=== PATIENT | male | born 1935 | race Caucasian/White ===

== ENCOUNTER 2016-11-08 10:30 | Emergency (ER) | payer MEDICARE | END 2016-11-08 11:52 | disposition home or self-care (01) | LOC: NAV ERS 10:30 | DX: H61.21 Impacted cerumen, right ear (principal); E78.5 Hyperlipidemia, unspecified; I10 Essential (primary) hypertension; I48.91 Unspecified atrial fibrillation; K21.9 Gastro-esophageal reflux disease without esophagitis; Z79.899 Other long term (current) drug therapy | CPT/HCPCS: 69210 ==

== ENCOUNTER 2016-12-13 10:35 | Outpatient (CLI) | payer MEDICARE ==
[2016-12-13 11:46] LABS: ALT (SGPT) 13 U/L (8-55); AST (SGOT) 32 U/L (5-34); Albumin 4.3 g/dL (3.4-4.8); Alkaline Phosphatase 77 U/L (40-150); Anion Gap 20 mmol/L (10-20); BUN (Urea Nitrogen) 32 mg/dL (8.4-25.7); Bilirubin, Total 1.5 mg/dL (0.2-1.2); Calc. Creatinine Clearance 0 mL/min (70-130); Calcium 9.6 mg/dL (7.8-10.44); Carbon Dioxide 24 mmol/L (23-31); Chloride 96 mmol/L (98-107); Estimated GFR-MDRD 30; Globulin 2.4 g/dL (2.4-3.5); Glucose 88 mg/dL (83-110); Potassium 4.3 mmol/L (3.5-5.1); Protein, Total 6.7 g/dL (5.8-8.1); Sodium 136 mmol/L (136-145)
[2016-12-13 13:29] LABS: #Basophils 0.1 thou/uL (0.0-0.2); #Eosinphils 0.1 thou/uL (0.0-0.7); #Lymphocytes 1.7 thou/uL (1.20-3.40); #Monocytes 1.2 thou/uL (0.11-0.59); #Neutrophils 5.3 thou/uL (1.40-6.50); %Basophils 1.6 % (0.0-1.0); %Eosinophils 1.5 % (0.0-10.0); %Lymphocytes 20.1 % (21.0-51.0); %Monocytes 14.3 % (0.0-10.0); %Neutrophils 62.4 % (42.0-75.0); Hemoglobin 12.6 g/dL (14.0-18.0); Mean Corpuscular HGB CONC 36.2 g/dL (32.0-36.0); Mean Corpuscular Hemoglobin 36.8 pg (27.0-31.0); Mean Platelet Volume 8.6 fL (7.4-10.4); Platelet Count 199 thou/uL (130-400); RBC Distribution Width 12.9 % (11.5-14.5); Red Blood Cell (RBC) Count 3.43 mill/uL (4.70-6.10); White Blood Cell (WBC) Count 8.5 thou/uL (4.8-10.8)
== END 2016-12-13 10:36 | disposition home or self-care (01) ==
LOC: NAV LAB 10:35
PROVIDERS: ATTEND Internal Medicine
DX: R58 Hemorrhage, not elsewhere classified (principal)
CPT/HCPCS: 36415; 80053; 85025; 85610

== ENCOUNTER 2017-04-12 05:44 | Emergency (ER) | payer MEDICARE ==
[2017-04-12] MEDS ORDERED: Lidocaine Viscous Sol 2% 15 ml UD Cup ONE (06:22)
[2017-04-12] MEDS ORDERED: Ondansetron HCl/PF 4 MG/2 ML Vial ONE (06:22)
[2017-04-12] MEDS ORDERED: Pantoprazole 40 MG VIAL ONE (06:22)
[2017-04-12] MEDS ORDERED: Mag-Al Plus 1200 MG/1200 MG/120 MG/30 ML UDCUP ONE (06:22)
[2017-04-12 06:31] LABS: ALT (SGPT) 60 U/L (8-55); AST (SGOT) 138 U/L (5-34); Alkaline Phosphatase 129 U/L (40-150); Anion Gap 20 mmol/L (10-20); BUN (Urea Nitrogen) 18 mg/dL (8.4-25.7); Bilirubin, Total 2.1 mg/dL (0.2-1.2); Calc. Creatinine Clearance 0 mL/min (70-130); Calcium 8.9 mg/dL (7.8-10.44); Carbon Dioxide 22 mmol/L (23-31); Chloride 104 mmol/L (98-107); Estimated GFR-MDRD 74; Globulin 2.6 g/dL (2.4-3.5); Glucose 117 mg/dL (83-110); Potassium 4.5 mmol/L (3.5-5.1); Protein, Total 6.6 g/dL (5.8-8.1); Sodium 141 mmol/L (136-145)
[2017-04-12 06:32] LABS: CKMB 5.7 ng/mL (0-6.6); Troponin I 0.091 ng/mL (< 0.028)
[2017-04-12 06:38] LABS: CK (CPK) 27 U/L (30-200); Hemoglobin 12.5 g/dL (14.0-18.0); Lipase 1117 U/L (8-78); Mean Corpuscular HGB CONC 34.1 g/dL (32.0-36.0); Mean Corpuscular Hemoglobin 34.6 pg (27.0-31.0); Mean Platelet Volume 11.1 fL (7.4-10.4); Platelet Count 169 thou/uL (130-400); RBC Distribution Width 12.6 % (11.5-14.5); Red Blood Cell (RBC) Count 3.62 mill/uL (4.70-6.10); White Blood Cell (WBC) Count 29.2 thou/uL (4.8-10.8)
[2017-04-12 06:39] LABS: Anisocytosis SLIGHT = 6-15 cells (100X) (0-5/hpf); Band 2 % (5-11); Lymphocytes 1 % (21-51); MDiff Complete? YES; Macrocytosis SLIGHT = 6-15 cells (100X) (0-5/hpf); Monocytes 9 % (0-10); Neutrophil 88 % (42-75); PLT Morphology Comment Appears Adequate
[2017-04-12] MEDS ORDERED: Fentanyl 100 MCG/2 ML VIAL ONE (07:12)
--- NOTE | 2017-04-12 07:32 | RAD ---
1 VIEW CHEST: Date: 04/12/17 HISTORY: Chest pain. Stomach pain. COMPARISON: 03/24/16. FINDINGS: Portable semiupright chest radiograph demonstrates a stable left-sided single lead transvenous pacema ker. Heart size is within normal limits for portable technique. Sternotomy wires identified. No conso lidation or mass. No pleural effusion or pneumothorax. Chronic degenerative change in both shoulders. Cervical fusion plate is noted. IMPRESSION: No acute cardiopulmonary process. POS: [facility]
[2017-04-12] MEDS ORDERED: Sodium Chloride 0.9% 1,000 ML ONE (07:38)
== END 2017-04-12 08:47 | disposition short-term general hospital (02) ==
LOC: NAV ERS 05:44
DX: K85.90 Acute pancreatitis without necrosis or infection, unspecified (principal); I25.10 Atherosclerotic heart disease of native coronary artery without angina pectoris; I48.91 Unspecified atrial fibrillation; K21.9 Gastro-esophageal reflux disease without esophagitis; Z86.14 Personal history of Methicillin resistant Staphylococcus aureus infection; E78.5 Hyperlipidemia, unspecified; I10 Essential (primary) hypertension; Z79.899 Other long term (current) drug therapy
CPT/HCPCS: 71010; 80053; 82553; 83690; 84484; 85025; 93005; 96361; 96374; 96375; C9113; J2405; J3010; J7050

== ENCOUNTER 2017-05-11 10:03 | Emergency (ER) | payer MEDICARE ==
[2017-05-11] MEDS ORDERED: Sodium Chloride 0.9% 1,000 ML ONE ×2 (10:21→11:45)
[2017-05-11 10:54] LABS: INR-International Normal Ratio 1.3; Prothrombin Time 16.9 SEC (12.0-14.7)
[2017-05-11 10:55] LABS: PTT 83.5 SEC (22.9-36.1)
[2017-05-11 11:03] LABS: Troponin I 0.078 ng/mL (< 0.028)
[2017-05-11 11:17] LABS: ALT (SGPT) 13 U/L (8-55); AST (SGOT) 37 U/L (5-34); Alkaline Phosphatase 83 U/L (40-150); Anion Gap 17 mmol/L (10-20); BUN (Urea Nitrogen) 19 mg/dL (8.4-25.7); CK (CPK) 79 U/L (30-200); Calc. Creatinine Clearance 0 mL/min (70-130); Calcium 9.2 mg/dL (7.8-10.44); Carbon Dioxide 22 mmol/L (23-31); Chloride 98 mmol/L (98-107); Estimated GFR-MDRD 61; Globulin 2.2 g/dL (2.4-3.5); Glucose 87 mg/dL (83-110); Magnesium 1.7 mg/dL (1.6-2.6); Protein, Total 6.2 g/dL (5.8-8.1); Sodium 133 mmol/L (136-145)
[2017-05-11 11:44] LABS: CKMB 12.2 ng/mL (0-6.6)
[2017-05-11 11:50] LABS: Hemoglobin 13.8 g/dL (14.0-18.0); Mean Corpuscular HGB CONC 35.4 g/dL (32.0-36.0); Mean Corpuscular Hemoglobin 34.7 pg (27.0-31.0); Mean Platelet Volume 12.8 fL (7.4-10.4); Platelet Count 165 thou/uL (130-400); RBC Distribution Width 13.6 % (11.5-14.5); Red Blood Cell (RBC) Count 3.97 mill/uL (4.70-6.10); White Blood Cell (WBC) Count 7.2 thou/uL (4.8-10.8)
--- NOTE | 2017-05-11 11:57 | RAD ---
CHEST ONE VIEW: History: Cough. Weakness. Comparison: 04-12-17 FINDINGS: Cardiac silhouette is magnified and enlarged. Pulmonary vasculature is upper limits of normal and acc entuated by shallow inspiration. Mediastinum is midline with post-operative changes, aortic calcifica tions, and a single lead cardiac pacer. No lobar consolidation or pleural fluid are apparent. IMPRESSION: 1. Cardiomegaly. 2. Atherosclerosis. POS: [facility]
--- NOTE | 2017-05-11 11:58 | CT ---
CT BRAIN WITHOUT CONTRAST: HISTORY: Generalized weakness. COMPARISON: CT brain from 2016. FINDINGS: Moderate atrophy. No acute hemorrhage or infarct. No midline shift or mass effect. Old lacunar inf arcts. There is a hypodensity of the right globus pallidus, which is similar. The calvarium is intact. The paranasal sinuses and mastoids appear clear. IMPRESSION: 1. No acute intracranial abnormality. 2. No significant change. POS: [facility]
[2017-05-11 12:11] LABS: Eosinophils 4 % (0-10); Lymphocytes 12 % (21-51); MDiff Complete? YES; Monocytes 10 % (0-10); Neutrophil 61 % (42-75); RBC Morphology Normal; Reactive Lymphocytes 12 % (0-10)
== END 2017-05-11 13:02 | disposition home or self-care (01) ==
LOC: NAV ERS 10:03
DX: I11.0 Hypertensive heart disease with heart failure (principal); I50.9 Heart failure, unspecified; I49.9 Cardiac arrhythmia, unspecified; I48.91 Unspecified atrial fibrillation; K21.9 Gastro-esophageal reflux disease without esophagitis; E78.5 Hyperlipidemia, unspecified; Z79.899 Other long term (current) drug therapy
CPT/HCPCS: 36416; 70450; 71045; 80053; 82553; 83605; 83735; 83880; 84484; 85025; 85610; 85730; 93005; 96360; 96361; J7050

== ENCOUNTER 2017-05-12 09:43 | Outpatient (CLI) | payer MEDICARE ==
[2017-05-12 10:49] LABS: Bilirubin Negative (Negative); Blood, Urine Negative (Negative); Clarity Clear (Clear); Glucose, Urine (Dipstick) Negative (Negative); Leukocyte Negative (Negative); Nitrite Negative (Negative); Protein, Urine (Dipstick) Negative (Neg-Trace); Urobilinogen 0.2 mg/dL (0.2-1.0); pH, Urine 5.5 (5.0-9.0)
[2017-05-12 10:51] LABS: Anion Gap 18 mmol/L (10-20); BUN (Urea Nitrogen) 16 mg/dL (8.4-25.7); Calc. Creatinine Clearance 0 mL/min (70-130); Calcium 8.8 mg/dL (7.8-10.44); Carbon Dioxide 24 mmol/L (23-31); Chloride 96 mmol/L (98-107); Estimated GFR-MDRD 61; Glucose 88 mg/dL (83-110); Potassium 3.6 mmol/L (3.5-5.1); Sodium 134 mmol/L (136-145)
== END 2017-05-12 09:44 | disposition home or self-care (01) ==
LOC: NAVSJIPCSP 09:43
PROVIDERS: ATTEND Internal Medicine
DX: I50.23 Acute on chronic systolic (congestive) heart failure (principal)
CPT/HCPCS: 36415; 80048; 81003; 83880; 84484; 87086

== ENCOUNTER 2017-08-16 05:34 | Emergency (ER) | payer MEDICARE ==
[2017-08-16 06:39] LABS: INR-International Normal Ratio 1.1
[2017-08-16 06:40] LABS: PTT 39.4 SEC (22.9-36.1)
[2017-08-16 06:49] LABS: ALT (SGPT) 17 U/L (8-55); AST (SGOT) 36 U/L (5-34); Albumin 4.3 g/dL (3.4-4.8); Alkaline Phosphatase 67 U/L (40-150); Anion Gap 15 mmol/L (10-20); BUN (Urea Nitrogen) 24 mg/dL (8.4-25.7); Bilirubin, Total 0.8 mg/dL (0.2-1.2); Calc. Creatinine Clearance 0 mL/min (70-130); Calcium 9.4 mg/dL (7.8-10.44); Carbon Dioxide 25 mmol/L (23-31); Chloride 100 mmol/L (98-107); Estimated GFR-MDRD 65; Globulin 2.3 g/dL (2.4-3.5); Glucose 82 mg/dL (83-110); Potassium 4.4 mmol/L (3.5-5.1); Protein, Total 6.6 g/dL (5.8-8.1); Sodium 136 mmol/L (136-145)
[2017-08-16] MEDS ORDERED: Ketorolac Tromethamine 30 MG/ML VIAL ONE (06:51)
[2017-08-16] MEDS ORDERED: Ondansetron ODT 4 MG TAB ONE (06:51)
[2017-08-16 06:52] LABS: Anisocytosis SLIGHT = 6-15 cells (100X) (0-5/hpf); Band 8 % (5-11); Eosinophils 3 % (0-10); Hemoglobin 11.6 g/dL (14.0-18.0); Lymphocytes 24 % (21-51); MDiff Complete? YES; Macrocytosis SLIGHT = 6-15 cells (100X) (0-5/hpf); Mean Corpuscular HGB CONC 32.9 g/dL (32.0-36.0); Mean Corpuscular Hemoglobin 33.5 pg (27.0-31.0); Monocytes 7 % (0-10); Neutrophil 58 % (42-75); PLT Morphology Comment Appears Adequate; Platelet Count 181 thou/uL (130-400); RBC Distribution Width 13.4 % (11.5-14.5); Red Blood Cell (RBC) Count 3.46 mill/uL (4.70-6.10); White Blood Cell (WBC) Count 7.6 thou/uL (4.8-10.8)
--- NOTE | 2017-08-16 07:59 | RAD ---
LEFT LOWER LEG TWO VIEWS: History: Fall. Left leg injury. FINDINGS: No comparison. Tibia and fibula are intact. Degenerative changes in the knee and ankle are apparent. There is calcif ication throughout the arterial structures. Osseous structures are demineralized. No acute fracture o r dislocation. IMPRESSION: 1. No acute osseous abnormalities are demonstrated. 2. Osteoporosis. 3. Atherosclerosis. POS: [facility]
== END 2017-08-16 07:15 | disposition home or self-care (01) ==
LOC: NAV ERS 05:34
DX: S81.812A Laceration without foreign body, left lower leg, initial encounter (principal); I25.10 Atherosclerotic heart disease of native coronary artery without angina pectoris; I48.91 Unspecified atrial fibrillation; K21.9 Gastro-esophageal reflux disease without esophagitis; J42 Unspecified chronic bronchitis; E78.5 Hyperlipidemia, unspecified; E78.1 Pure hyperglyceridemia; I10 Essential (primary) hypertension; Z79.891 Long term (current) use of opiate analgesic; Z79.899 Other long term (current) drug therapy; Z79.82 Long term (current) use of aspirin; W17.89XA Other fall from one level to another, initial encounter
CPT/HCPCS: 80053; 85025; 85610; 85730; 96372; J1885; Q0162

== ENCOUNTER 2017-08-25 20:55 | Emergency (ER) | payer MEDICARE ==
[2017-08-25] MEDS ORDERED: Acetaminophen 500 MG TAB ONE (21:40)
== END 2017-08-25 21:50 | disposition home or self-care (01) ==
LOC: NAV ERS 20:55
DX: S80.12XD Contusion of left lower leg, subsequent encounter (principal); I25.10 Atherosclerotic heart disease of native coronary artery without angina pectoris; I11.0 Hypertensive heart disease with heart failure; I50.9 Heart failure, unspecified; I48.91 Unspecified atrial fibrillation; K21.9 Gastro-esophageal reflux disease without esophagitis; E78.2 Mixed hyperlipidemia; Z79.82 Long term (current) use of aspirin; Z79.899 Other long term (current) drug therapy; W22.8XXD Striking against or struck by other objects, subsequent encounter
CPT/HCPCS: 99283

== ENCOUNTER 2017-11-09 09:26 | Outpatient (CLI) | payer MEDICARE ==
--- NOTE | 2017-11-09 11:53 | CT ---
CT LUMBAR SPINE WITHOUT CONTRAST: HISTORY: Low back pain and radiculopathy. The patient has had numerous back surgeries and is receiving pain i njections. COMPARISON: None. TECHNIQUE: Multiple contiguous axial images were obtained in a CT of the lumbar spine without contrast. Sagitta l and coronal reformats were performed. FINDINGS: There are bilateral L5 pars defects. There is grade 1 anterolisthesis of L5 on S1. The intervertebr al disks are narrowed, and vacuum phenomenon is seen at all levels throughout the lumbar spine. Ante rior osteophytes are seen throughout the lumbar spine. The vertebral bodies demonstrate normal heigh t without evidence of fracture. Atherosclerotic calcifications are seen in the aorta. There are small bilateral pleural effusions. The other prevertebral soft tissues are unremarkable. The patient has had laminectomies in the lower lumbosacral spine. T12-L1: No significant posterior disk osteophyte complex is seen. No posterior facet arthrosis. No bony narrowing of the central canal is seen. There is moderate bilateral neural foraminal stenosis. L1-L2: A moderate posterior disk osteophyte complex is seen. No posterior facet arthrosis. Moderat e to severe central canal stenosis. Moderate to severe bilateral neural foraminal stenosis. L2-L3: A moderate posterior disk osteophyte complex is seen. No posterior facet arthrosis. Moderat e central canal stenosis. Moderate to severe bilateral neural foraminal stenosis. L3-L4: A moderate posterior disk osteophyte complex is seen. Moderate bilateral posterior facet art hrosis. Mild central canal stenosis. Moderate to severe bilateral neural foraminal stenosis. L4-L5: A moderate disk osteophyte complex is seen. Severe right and moderate left neural foraminal stenosis. Severe central canal stenosis. Moderate to severe bilateral neural foraminal stenosis. L5-S1: A moderate disk osteophyte complex is seen. Mild bilateral posterior facet arthrosis. No ce ntral canal stenosis. Severe bilateral neural foraminal stenosis. IMPRESSION: Degenerative changes of the lumbar spine, as above. POS: [facility]
== END 2017-11-09 09:27 | disposition home or self-care (01) ==
LOC: NAV CT 09:26
PROVIDERS: ATTEND Specialist
DX: M51.16 Intervertebral disc disorders with radiculopathy, lumbar region (principal); M99.82 Other biomechanical lesions of thoracic region; M99.83 Other biomechanical lesions of lumbar region; M48.061 Spinal stenosis, lumbar region without neurogenic claudication; M47.896 Other spondylosis, lumbar region; M47.897 Other spondylosis, lumbosacral region; M99.84 Other biomechanical lesions of sacral region
CPT/HCPCS: 72131

== ENCOUNTER 2017-11-23 15:28 | Outpatient (CLI) | payer MEDICARE ==
--- NOTE | 2017-11-23 16:18 | RAD ---
TWO VIEWS CHEST: 11/23/17 HISTORY: Shortness of breath. Pericardial fluid. COMPARISON: 05/11/17. FINDINGS: Based on the two views chest, the cardiac silhouette appears to be enlarged. Correlate for possible p ericardial effusion. There is atherosclerosis of the aorta. Stable left sided transvenous pacemaker a nd sternotomy wires. Pulmonary vessels are slightly prominent. Trace right and small left sided pleur al effusion. Parenchymal changes in the left lung base is suspected. No consolidation or mass. No pne umothorax. There are degenerative changes in both shoulders. IMPRESSION: 1. Enlarged cardiac silhouette. Correlate with possible cardiac echo to exclude for a pericardia l effusion. 2. Pleural and parenchymal changes in the left lung base. Continued surveillance is recommended. POS: [facility]
== END 2017-11-23 15:29 | disposition home or self-care (01) ==
LOC: NAV RAD 15:28
PROVIDERS: ATTEND Internal Medicine
DX: R06.02 Shortness of breath (principal); I51.7 Cardiomegaly
CPT/HCPCS: 71046

== ENCOUNTER 2017-12-27 11:39 | Observation (INO) | payer MEDICARE ==
[2017-12-27] MEDS ORDERED: Acetaminophen 500 MG TAB ONE (12:31)
[2017-12-27] MEDS ORDERED: Sodium Chloride 0.9% 250 ML 250 ML ONE (12:32)
[2017-12-27] MEDS ORDERED: cefTRIAXone\\ROCEPHIN 1 GM VIAL ONE (12:32)
[2017-12-27] MEDS ORDERED: Azithromycin 500 MG VIAL ONE (12:32)
[2017-12-27 12:49] LABS: #Basophils 0.1 thou/uL (0.0-0.2); #Lymphocytes 0.9 thou/uL (1.20-3.40); %Basophils 0.6 % (0.0-1.0); %Eosinophils 0.3 % (0.0-10.0); %Monocytes 10.9 % (0.0-10.0); %Neutrophils 83.3 % (42.0-75.0); Hemoglobin 12.7 g/dL (14.0-18.0); Mean Corpuscular HGB CONC 34.4 g/dL (32.0-36.0); Mean Corpuscular Volume 95.8 fL (78.0-98.0); Mean Platelet Volume 8.4 fL (7.4-10.4); Platelet Count 180 thou/uL (130-400); RBC Distribution Width 12.9 % (11.5-14.5); Red Blood Cell (RBC) Count 3.85 mill/uL (4.70-6.10)
[2017-12-27 13:05] LABS: ALT (SGPT) 26 U/L (8-55); AST (SGOT) 40 U/L (5-34); Alkaline Phosphatase 90 U/L (40-150); Anion Gap 15 mmol/L (10-20); BUN (Urea Nitrogen) 28 mg/dL (8.4-25.7); Bilirubin, Total 1.2 mg/dL (0.2-1.2); CK (CPK) 77 U/L (30-200); Calc. Creatinine Clearance 0 mL/min (70-130); Calcium 9.4 mg/dL (7.8-10.44); Carbon Dioxide 25 mmol/L (23-31); Chloride 98 mmol/L (98-107); Estimated GFR-MDRD 62; Globulin 2.3 g/dL (2.4-3.5); Glucose 93 mg/dL (83-110); Lipase 17 U/L (8-78); Potassium 4.1 mmol/L (3.5-5.1); Protein, Total 6.3 g/dL (5.8-8.1); Sodium 134 mmol/L (136-145); Troponin I 0.056 ng/mL (< 0.028)
[2017-12-27 13:14] LABS: Bilirubin Negative (Negative); Blood, Urine Negative (Negative); Clarity Clear (Clear); Glucose, Urine (Dipstick) Negative (Negative); Leukocyte Negative (Negative); Nitrite Negative (Negative); Protein, Urine (Dipstick) Negative (Neg-Trace); Specific Gravity, Urine 1.015 (1.005-1.030); Urobilinogen 0.2 mg/dL (0.2-1.0)
--- NOTE | 2017-12-27 13:15 | RAD ---
CHEST ONE VIEW: History: 82-year-old male with history of fever, vomiting, and chills with weakness. Comparison: 05-11-17 FINDINGS: Post underlying sternotomy with minimal cardiomegaly and left ICD. Severe arthrosis changes are noted above the shoulders. No confluent pneumonia, overt edema, or pleural effusion or other acute process . IMPRESSION: Stable chest. Post underlying sternotomy and left ICD. Atherosclerosis of the aorta with ectasia. Min imal cardiomegaly without evidence for edema or other acute process. No evidence for pneumonia. POS: [facility]
[2017-12-27 13:16] LABS: CKMB 10.2 ng/mL (0-6.6)
[2017-12-27] MEDS ORDERED: Acetaminophen 325 MG TAB PO PRN (15:49)
[2017-12-27] MEDS: Sodium Chloride 0.9% 1,000 ML IV SCH ×2 (16:31→20:28)
[2017-12-27 17:22] VITALS: BMI 27.2
[2017-12-27] MEDS ORDERED: Ondansetron PF 4 MG/2 ML Vial IVP PRN (18:24)
[2017-12-27] MEDS ORDERED: HYDROcodone/Acetaminophen 5/325 mg Tablet PO PRN (18:26)
[2017-12-27] MEDS ORDERED: Sodium Chloride 0.9% 1,000 ML IV SCH (22:00)
--- NOTE | 2017-12-28 02:01 | HP ---
DATE OF ADMISSION: 12/27/2017 CHIEF COMPLAINT: Fever, chills, leukocytosis, productive cough. HISTORY OF PRESENT ILLNESS: Patient is an 82-year-old white male well known to myself with a history of multiple medical problems including paroxysmal atrial fibrillation, gastroesophageal reflux, cerv ical stenosis, status post laminectomy with recurrent aspiration, hypertension, severe degenerative b ack disease of the lumbar spine. Past history of methicillin-resistant Staph infection, coronary art crescencio disease, status post coronary artery bypass graft who has been living at home with caregiver and demented , had been compliant to his medications of handheld nebulizer with Brovana and budesonid e twice daily, atorvastatin 20 daily, amlodipine 5 daily, losartan/hydrochlorothiazide 100/25 daily, Lasix 40 daily, [place] 5/325 every 6 hours as needed, metoprolol 25 daily, Nexium 40 daily. He was do ing well until the day prior to admission when he developed fever, chills, productive cough with some nausea and vomiting on the night of admission. He was seen in the emergency room today and was foun d to be some mild respiratory distress and dehydrated, responded to IV fluids, and a nebulizer treatm ent. Chest x-ray showed no infiltrates, but he did have a leukocytosis of 18,000 and appeared to be in some mild respiratory distress. He was therefore admitted to the observation cruz to be treated f or community-acquired bronchial pneumonia with Rocephin be continued on his home medications and corazon tor closely for improvement or deterioration. PAST MEDICAL HISTORY: As above. Positive for coronary artery disease, status post coronary artery b ypass graft, paroxysmal atrial fibrillation, status post pacemaker with no anticoagulation of patient refusal, hypertension, controlled to goal, congestive heart failure well-compensated, severe degener ative disk disease of the lumbar and cervical spine requiring multiple epidural steroid injections of the lower back and a cervical laminectomy, recurrent difficulty with dysphagia secondary to laminect bran, occasional aspiration, history of MRSA infection in the past. ALLERGIES: He has no known allergies. CURRENT MEDICATIONS: As above. REVIEW OF SYSTEMS: HEENT: He denies any headaches, dizziness, change in vision, hearing, hoarseness , or dysphagia. Pulmonary: He has had cough productive of thick white sputum, occasional vomiting o f the sputum, had no chest pain. He noticed no wheezing. Cardiovascular: He denied any chest pain, orthopnea, paroxysmal nocturnal dyspnea, or edema. Gastrointestinal: He has had nausea with occasi onal vomiting of phlegm with no diarrhea, abdominal pain. Genitourinary: He has mild dysuria with n o hematuria. Mild decreased stream. Neurologic: Denies localized numbness, weakness in arms or ext remities. Musculoskeletal: He has chronic pain and tenderness in his shoulders, neck, and lower maki k. PHYSICAL EXAMINATION: GENERAL: Patient is an elderly white male sitting in bed, appears to be in mild distress, oriented x 3 and cooperative. VITAL SIGNS: Showed blood pressure of 128/63, temperature 99.8, pulse 71, respirations 22, O2 sats 9 5% on room air. HEENT: Pupils are equal, round, and react to light and accommodation. Sclerae anicteric. Conjuncti vae pale. Oral mucous membranes well hydrated. NECK: Supple, except for some stiffness at the laminectomy site. No nodes or masses. LUNGS: Show decreased breath sounds in the bases, but no rales, rhonchi, rubs, or wheezes. CARDIAC: Regular rhythm. PMI in the fifth intercostal space midclavicular line, pacemaker in place. ABDOMEN: Soft and nontender with no masses or organomegaly. SKIN/EXTREMITIES: Show tenderness to palpation of the neck and lower lumbar spines. NEUROLOGICAL: Intact. LABORATORY AND X-RAY FINDINGS: Shows a white count 18,000, hematocrit 36, hemoglobin 12. Sodium 134 , potassium 4.1, chloride 98, bicarbonate 25, BUN 28, creatinine 1.12. Lactate 1.6, AST 40, ALT 26, CK-MB 10.2, troponin 0.056, albumin 4.0. ASSESSMENT AND PLAN: An 82-year-old white male with history of multiple medical problems including p aroxysmal atrial fibrillation, coronary artery disease, severe cervical and lumbar degenerative disk disease status post cervical laminectomy with recurrent problems with dysphagia, who presents with ac sahra onset of cough, fever, chills, found to have leukocytosis and despite having a clear chest x-ray I feel this is probably aspiration bronchitis and will admit to the observation cruz, started on IV R ocephin. Blood cultures have been done. He will be continued on his bronchodilators, handheld nebul izers and his white count normalized in the morning, we will be switched to oral medications and hope fully discharged home in 24-36 hours.
[2017-12-28 06:03] LABS: Anion Gap 14 mmol/L (10-20); BUN (Urea Nitrogen) 23 mg/dL (8.4-25.7); Calc. Creatinine Clearance 66 mL/min (70-130); Carbon Dioxide 22 mmol/L (23-31); Chloride 103 mmol/L (98-107); Estimated GFR-MDRD 84; Glucose 91 mg/dL (83-110); Potassium 3.8 mmol/L (3.5-5.1); Sodium 135 mmol/L (136-145)
[2017-12-28 06:19] LABS: #Basophils 0.1 thou/uL (0.0-0.2); #Lymphocytes 1.3 thou/uL (1.20-3.40); #Monocytes 1.4 thou/uL (0.11-0.59); %Basophils 0.6 % (0.0-1.0); %Eosinophils 0.2 % (0.0-10.0); %Lymphocytes 10.4 % (21.0-51.0); %Monocytes 10.6 % (0.0-10.0); %Neutrophils 78.1 % (42.0-75.0); Hemoglobin 11.7 g/dL (14.0-18.0); Mean Corpuscular HGB CONC 35.6 g/dL (32.0-36.0); Mean Corpuscular Hemoglobin 34.5 pg (27.0-31.0); Mean Corpuscular Volume 96.9 fL (78.0-98.0); Mean Platelet Volume 7.6 fL (7.4-10.4); Platelet Count 154 thou/uL (130-400); Red Blood Cell (RBC) Count 3.38 mill/uL (4.70-6.10); White Blood Cell (WBC) Count 12.7 thou/uL (4.8-10.8)
[2017-12-28 06:20] LABS: PLT Morphology Comment Appears Adequate; RBC Morphology Normal
[2017-12-28] MEDS ORDERED: Arformoterol 15 MCG/2 ML NEB NEB SCH (06:30)
[2017-12-28] MEDS ORDERED: Budesonide 0.5 MG/2 ML NEB NEB SCH (06:30)
[2017-12-28] MEDS ORDERED: Azithromycin 250 MG TAB PO SCH (09:00)
[2017-12-28] MEDS ORDERED: Atorvastatin Calcium 20 MG TAB PO SCH (09:00)
[2017-12-28] MEDS ORDERED: Aspirin 81 mg Enteric Coated Tablet PO SCH (09:00)
[2017-12-28] MEDS ORDERED: Hydrochlorothiazide 25 MG TAB PO SCH (09:00)
[2017-12-28] MEDS ORDERED: Cefdinir 300 MG CAP PO SCH (09:00)
[2017-12-28] MEDS ORDERED: Non-Formulary Item 1 EACH (Losartan/Hydrochlorothiazide [Losartan-Hctz 100-25 Mg Tab] 1 E PO SCH (09:00)
[2017-12-28] MEDS ORDERED: Loratadine 10 MG TAB PO SCH (09:00)
[2017-12-28] MEDS ORDERED: Losartan Potassium 50 MG TAB PO SCH (09:00)
[2017-12-28] MEDS ORDERED: Metoprolol Tartrate 25 MG TAB PO SCH (09:00)
[2017-12-28 13:10] VITALS: BP 133/69; TEMP 97.2
--- NOTE | 2017-12-29 03:26 | DIS ---
DATE OF PLACEMENT ON OBSERVATION UNIT: 12/27/2017 DATE OF DISCHARGE: 12/28/2017 FINAL DIAGNOSES: 1. Aspiration bronchitis 2. Paroxysmal atrial fibrillation. 3. Gastroesophageal reflux. 4. Cervical stenosis, status post laminectomy with recurrent aspiration. 5. Hypertension. 6. Severe degenerative disk disease of the lumbar spine. 7. Tachycardia-bradycardia syndrome, status post pacemaker. 8. Compensated congestive heart failure. 9. Coronary artery disease, status post coronary artery bypass graft. HOSPITAL COURSE: Patient is an 82-year-old white male well known to myself with multiple medical pro blems, who presents with acute onset of cough, shortness of breath, nausea and chills, found to have a leukocytosis is to be in mild respiratory distress and felt to have aspiration bronchitis, even tho ugh the chest x-ray showed no infiltrate. He was placed in the observation cruz. He had blood cultu res done, which returned no growth but was started on Rocephin and Zithromax. Blood cultures were do ne that showed no growth. Laboratories improved from a white count of 18,000 to 12,700 by the next m luising. Sodium was 135, potassium 3.8, chloride 103, bicarbonate 22, BUN 23, creatinine 0.87. Lacti c acid was normal at 1.6. CK-MB was elevated 10.2, but troponin was normal at 0.056. He felt better the next morning was switched to oral cefdinir and Zithromax followed for another 12 hours. He cont inued to do well with minimal cough, no shortness of breath and no nausea and vomiting. This felt to be stable to be discharged home on cefdinir 300 twice daily for a full 7-day course of Zithromax 250 daily for another 3 days. He will be continued on his home medications of Lasix 40 mg a day if weig ht is above 160, losartan/hydrochlorothiazide 100/25 daily, metoprolol 25 extended-release daily, Nex ium 40 daily, atorvastatin 20 daily, handheld nebulizer with Brovana 15 mcg twice daily, budesonide 0 .5 mg twice daily, and hydrocodone 10/325 as needed per recommendation of pain physician, Dr. Rosa guzman. He will be seen by myself in 2 weeks for followup with transitional care. He will continue aspi ration precautions.
== END 2017-12-28 17:52 | disposition home or self-care (01) ==
LOC: NAV ERS 11:39 → UNDOADMOB 13:51 → NAV ACUTE 13:51 → UNDOADMOB 15:01 → NAV ACUTE 15:15
PROVIDERS: ADMIT Internal Medicine; ATTEND Internal Medicine
DX: J69.0 Pneumonitis due to inhalation of food and vomit (principal); I48.0 Paroxysmal atrial fibrillation; K21.9 Gastro-esophageal reflux disease without esophagitis; I11.0 Hypertensive heart disease with heart failure; I50.9 Heart failure, unspecified; I25.10 Atherosclerotic heart disease of native coronary artery without angina pectoris; Z95.0 Presence of cardiac pacemaker; Z95.1 Presence of aortocoronary bypass graft; Z79.899 Other long term (current) drug therapy
CPT/HCPCS: 71045; 80048; 80053; 81003; 82550; 82553; 83605; 83690; 84484; 85025; 87040; 87086; 93005; 94640; 96361; 96365; 96375; G0378; J0456; J0696; J7050; J7620; J7626

== ENCOUNTER 2018-01-12 09:35 | Outpatient (CLI) | payer MEDICARE ==
[2018-01-12 10:00] LABS: #Basophils 0.1 thou/uL (0.0-0.2); #Eosinphils 0.1 thou/uL (0.0-0.7); #Monocytes 0.8 thou/uL (0.11-0.59); #Neutrophils 9.8 thou/uL (1.40-6.50); %Basophils 1.1 % (0.0-1.0); %Eosinophils 0.5 % (0.0-10.0); %Lymphocytes 8.6 % (21.0-51.0); %Neutrophils 82.9 % (42.0-75.0); Hemoglobin 12.1 g/dL (14.0-18.0); Mean Corpuscular HGB CONC 33.9 g/dL (32.0-36.0); Mean Corpuscular Hemoglobin 33.5 pg (27.0-31.0); Mean Corpuscular Volume 98.9 fL (78.0-98.0); Mean Platelet Volume 9.3 fL (7.4-10.4); Platelet Count 221 thou/uL (130-400); RBC Distribution Width 12.7 % (11.5-14.5); Red Blood Cell (RBC) Count 3.61 mill/uL (4.70-6.10); White Blood Cell (WBC) Count 11.8 thou/uL (4.8-10.8)
[2018-01-12 10:12] LABS: ALT (SGPT) 11 U/L (8-55); AST (SGOT) 24 U/L (5-34); Albumin 3.8 g/dL (3.4-4.8); Alkaline Phosphatase 63 U/L (40-150); Anion Gap 14 mmol/L (10-20); BUN (Urea Nitrogen) 22 mg/dL (8.4-25.7); Bilirubin, Total 1.5 mg/dL (0.2-1.2); Calc. Creatinine Clearance 0 mL/min (70-130); Calcium 9.7 mg/dL (7.8-10.44); Carbon Dioxide 27 mmol/L (23-31); Chloride 99 mmol/L (98-107); Estimated GFR-MDRD 65; Globulin 2.3 g/dL (2.4-3.5); Glucose 110 mg/dL (83-110); Protein, Total 6.1 g/dL (5.8-8.1); Sodium 136 mmol/L (136-145)
== END 2018-01-12 09:36 | disposition home or self-care (01) ==
LOC: NAV LAB 09:35
PROVIDERS: ATTEND Internal Medicine
DX: K92.0 Hematemesis (principal)
CPT/HCPCS: 36415; 80053; 82150; 85025

== ENCOUNTER 2018-01-12 11:04 | Observation (INO) | payer MEDICARE ==
[~2018-01-12 11:04] MED LIST: Iopamidol 370 76% 100 ML VIAL ONE
[2018-01-12 11:18] VITALS: BMI 25.4
[2018-01-12] MEDS ORDERED: Ondansetron HCl/PF 4 MG/2 ML Vial IVP PRN (11:21)
[2018-01-12] MEDS ORDERED: Ondansetron ODT 4 MG TAB PO PRN (11:52)
[2018-01-12] MEDS ORDERED: traMADol HCl 50 MG TAB PO PRN (11:52)
[2018-01-12] MEDS ORDERED: HYDROcodone/Acetaminophen 5/325 mg Tablet PO PRN (11:52)
[2018-01-12] MEDS ORDERED: Sodium Chloride 0.9% 10 ML ONE (11:53)
[2018-01-12] MEDS: Sodium Chloride 0.9% 1,000 ML IV SCH ×2 (12:07→19:32)
[2018-01-12] MEDS ORDERED: Hydrochlorothiazide 25 MG TAB PO SCH (12:30)
--- NOTE | 2018-01-12 15:03 | CT ---
CT OF ABDOMEN AND PELVIS WITH IV CONTRAST 01/12/18 COMPARISON: None. HISTORY: Nausea, vomiting and generalized weakness. TECHNIQUE: Serial axial CT imaging at 5 mm intervals from lung bases through the pubic symphysis with IV contras t. Coronal reformatted imaging obtained. FINDINGS: Small incompletely visualized left pleural effusion present. Midline sternotomy wires are partially i juan daniel. The cardiac silhouette is enlarged and there is an incompletely imaged transvenous pacing jessica ce present. No free intraperitoneal air is evident. There is distention of a fluid filled stomach. The gallbladde r is mildly distended. No focal liver lesion identified. There is subtle material of increased density in the region of the gallbladder neck which may signify noncalcified stones and/or sludge. The spleen is unremarkable. There is mild fatty atrophy of the pancreas which appears otherwise unrem arkable. The adrenal glands and kidneys demonstrate no acute findings. The kidneys are mildly atrophi c and demonstrate cortical thinning bilaterally suggesting a degree of renal medical disease. There i s a vague hypodense lesion in the upper pole of the right kidney measuring in the 8 mm range, too sma ll to characterize. There is a faint containing inguinal hernia on the left. There are small volume abnormal free fluid i n the posterior inferior pelvis. There are numerous gas and fluid filled dilated loops of small bowel within the left abdomen and pelv is with decompressed distal small bowel loops in the right abdomen, evidence of a high grade small evita wel obstruction. There is fecal material within the small bowel in the left lower quadrant in the are a of caliber change, consistent with the probable location of obstruction. There is extensive atherosclerotic calcification of the abdominal aorta and its branches. No lymphadenopathy is noted within the abdomen or the pelvis. There is extensive degenerative change noted within the spine, both the lower thoracic spine as well as throughout the lumbar spine with multilevel severe degenerative end plate change and osteophyte fo rmation as well as multilevel vacuum disc formation and severe facet hypertrophic change. IMPRESSION: Evidence of a high grade small bowel obstruction with transition point in the left lower quadrant. Nu merous additional incidental findings as described above. POS: [facility]
[2018-01-12] MEDS ORDERED: Lidocaine 2% Jelly 5 ML TUBE ONE (17:43)
[2018-01-12] MEDS: Budesonide 0.5 MG/2 ML NEB NEB SCH (20:16)
[2018-01-12] MEDS: 1/2 NS w/KCL 20 mEq 1,000 ML IV SCH (20:16)
[2018-01-12] MEDS: Famotidine/PF 20 mg/2ml Vial SLOW IVP SCH (20:16)
[2018-01-12] MEDS: Arformoterol 15 MCG/2 ML NEB NEB SCH (20:16)
[2018-01-12] MEDS: Carvedilol 6.25 MG TAB PO SCH (20:20)
--- NOTE | 2018-01-12 20:31 | PRG ---
DATE OF SERVICE: 01/12/2018 SUBJECTIVE: The patient has continued to have nausea and vomiting throughout the day and CT scan has been done and showed a highly obstruction of the small bowel in left upper quadrant. His laboratori es have shown no significant episodes of sepsis or significant dehydration or renal dysfunction. Vit al signs remained stable. The patient therefore wished to attempt nasogastric suction here at [facility] in observation unit prior to attempting transfer to [facility] for surgical co nsultation. OBJECTIVE: VITAL SIGNS: Shows temperature is 97.8, pulse 77, respirations 20, O2 sat is 92% on room air, blood pressure 106/55. LUNGS: Clear. CARDIAC: Regular rhythm. ABDOMEN: Distended, minimally tender in the left upper quadrant. LABORATORY: As mentioned above. White count 11,800 with 8% bands, 82% segs, hemoglobin of 12, hemat ocrit 35. Sodium 136, potassium 4.0, chloride 99, bicarbonate 27, BUN 22, creatinine 1.08. CT scan as above. ASSESSMENT: 1. High grade small-bowel obstruction, left upper quadrant. No evidence of sepsis with significant dehydration 2. Stable coronary artery disease. 3. Recurrent aspiration and dysphagia, status post cervical laminectomy. 4. Paroxysmal atrial fibrillation. 5. Coronary artery disease with no evidence of congestive heart failure 6. Chronic pain secondary to degenerative disk disease and shoulder pain. PLAN: Place NG suction to low suction. Continue IV normal saline, but add 20 mEq of potassium to th e IV. Repeat CBC and base met profile in the a.m. Obtain KUB tonight to determine adequate placemen t of NG tube and repeat CT scan in the a.m., and if no improvement, transfer for surgical evaluation tomorrow.
--- NOTE | 2018-01-12 20:33 | RAD ---
AP VIEW ABDOMEN: 01/12/18 HISTORY: NG tube placement. AP view abdomen is obtained. The radiograph is underpenetrated. The NG tube cannot be visualized. Repeat radiograph with better pe netrated radiograph is recommended. In addition, this is a portable radiograph and may be worthwhile to consider nonportable radiograph obtained in the Department. IMPRESSION: Difficulty in visualizing the NG tube on this portable suboptimal exam. POS: [facility]
[2018-01-12] MEDS ORDERED: Amlodipine 5 MG TAB PO SCH (21:00)
[2018-01-13] MEDS: 1/2 NS w/KCL 20 mEq 1,000 ML IV SCH ×3 (02:28→12:30)
[2018-01-13] MEDS: Sodium Chloride 0.9% 1,000 ML IV SCH ×2 (02:28→12:46)
[2018-01-13 06:16] LABS: Anion Gap 16 mmol/L (10-20); BUN (Urea Nitrogen) 24 mg/dL (8.4-25.7); Calc. Creatinine Clearance 46 mL/min (70-130); Calcium 9.3 mg/dL (7.8-10.44); Carbon Dioxide 20 mmol/L (23-31); Chloride 102 mmol/L (98-107); Estimated GFR-MDRD 57; Glucose 87 mg/dL (83-110); Potassium 4.3 mmol/L (3.5-5.1); Sodium 134 mmol/L (136-145)
[2018-01-13 06:20] LABS: #Basophils 0.1 thou/uL (0.0-0.2); #Monocytes 1.8 thou/uL (0.11-0.59); #Neutrophils 13.9 thou/uL (1.40-6.50); %Basophils 0.8 % (0.0-1.0); %Monocytes 10.8 % (0.0-10.0); %Neutrophils 82.4 % (42.0-75.0); Mean Corpuscular HGB CONC 33.9 g/dL (32.0-36.0); Mean Corpuscular Hemoglobin 35.3 pg (27.0-31.0); Mean Platelet Volume 8.7 fL (7.4-10.4); Platelet Count 187 thou/uL (130-400); RBC Distribution Width 14.1 % (11.5-14.5); White Blood Cell (WBC) Count 16.9 thou/uL (4.8-10.8)
[2018-01-13 06:21] LABS: Anisocytosis SLIGHT = 6-15 cells (100X) (0-5/hpf); MDiff Complete? YES; Macrocytosis SLIGHT = 6-15 cells (100X) (0-5/hpf); PLT Morphology Comment Appears Adequate
[2018-01-13] MEDS ORDERED: Aspirin 81 mg Enteric Coated Tablet PO SCH (09:00)
[2018-01-13] MEDS ORDERED: Hydrochlorothiazide 25 MG TAB PO SCH (09:00)
[2018-01-13] MEDS ORDERED: Losartan 25 MG TAB PO SCH (09:00)
[2018-01-13] MEDS: Famotidine/PF 20 mg/2ml Vial SLOW IVP SCH ×3 (10:00→20:27)
--- NOTE | 2018-01-13 10:10 | CT ---
CT ABDOMEN AND PELVIS WITHOUT IV CONTRAST: INDICATIONS: Follow-up small bowel obstruction. COMPARISON: CT of 01/12/2018, which showed evidence of relatively high-grade small bowel obstruction in the left abdomen. TECHNIQUE: Multiple axial tomograms obtained through the abdomen and pelvis without IV enhancement. FINDINGS: Images through the lung bases again show a small to moderate sized left pleural effusion, unchanged. The liver, spleen, and pancreas are unremarkable. There is radiopaque material layering in the gallbladder, consistent with gravel/sludge/stones. The adrenal glands and kidneys are unremarkable. The abdominal aorta is calcified and mildly ectatic, without aneurysmal dilatation. The distal abdom inal aorta measures 2.6 cm. Review of the small bowel today shows decompression of the small bowel dilatation in the left abdomen , noted on yesterday's study. The small bowel loops in the left abdomen show mild distention today, without significant dilatation. The more distal small bowel loops in the right abdomen remain of nor mal caliber. Stool throughout the colon. The urinary bladder is opacified with contrast from yesterday's IV contrast injection. IMPRESSION: 1. Decompression of the dilated small bowel loops in the left abdomen from yesterday. The small bow el loops in the abdomen today show nonspecific distention and evidence of some mild mural thickening, which is difficult to evaluate without enteric contrast. The mid and distal small bowel loops remai n normal caliber and unchanged from yesterday. 2. Evidence of gallstones/dense sludge in the gallbladder. 3. Left pleural effusion, unchanged. POS: [facility]
[2018-01-13] MEDS: Budesonide 0.5 MG/2 ML NEB NEB SCH ×2 (10:14→20:27)
[2018-01-13] MEDS: Arformoterol 15 MCG/2 ML NEB NEB SCH ×2 (10:17→20:25)
[2018-01-13] MEDS: Carvedilol 6.25 MG TAB PO SCH (10:54)
[2018-01-13] MEDS ORDERED: Digoxin 0.5 MG/2 ML AMP SLOW IVP SCH (11:45)
[2018-01-13] MEDS ORDERED: Enoxaparin Sodium 30 MG/0.3 ML SYRINGE SC SCH (11:45)
[2018-01-13 16:46] LABS: Anion Gap 17 mmol/L (10-20); BUN (Urea Nitrogen) 24 mg/dL (8.4-25.7); Calc. Creatinine Clearance 49 mL/min (70-130); Calcium 9.2 mg/dL (7.8-10.44); Carbon Dioxide 17 mmol/L (23-31); Chloride 104 mmol/L (98-107); Estimated GFR-MDRD 62; Glucose 81 mg/dL (83-110); Potassium 4.7 mmol/L (3.5-5.1); Sodium 133 mmol/L (136-145)
[2018-01-13 17:41] LABS: #Basophils 0.1 thou/uL (0.0-0.2); #Monocytes 1.7 thou/uL (0.11-0.59); #Neutrophils 12.5 thou/uL (1.40-6.50); %Basophils 0.6 % (0.0-1.0); %Eosinophils 0.1 % (0.0-10.0); %Lymphocytes 6.4 % (21.0-51.0); %Monocytes 10.9 % (0.0-10.0); %Neutrophils 81.9 % (42.0-75.0); Hemoglobin 12.3 g/dL (14.0-18.0); Mean Corpuscular HGB CONC 33.9 g/dL (32.0-36.0); Mean Corpuscular Hemoglobin 35.9 pg (27.0-31.0); Mean Platelet Volume 9.2 fL (7.4-10.4); Platelet Count 174 thou/uL (130-400); Red Blood Cell (RBC) Count 3.42 mill/uL (4.70-6.10); White Blood Cell (WBC) Count 15.3 thou/uL (4.8-10.8)
[2018-01-13] MEDS ORDERED: Lidocaine 2% Jelly 5 ML TUBE ONE (19:11)
[2018-01-13] MEDS ORDERED: Benzocaine 20% Spray 60 ML CAN ONE (19:22)
[2018-01-13] MEDS ORDERED: Enalaprilat Dihydrate 1.25 MG/ML VIAL ONE (20:24)
[2018-01-13] MEDS: Enalaprilat Dihydrate 1.25 MG/ML VIAL SLOW IVP SCH (20:27)
--- NOTE | 2018-01-13 21:08 | RAD ---
KUB: 01/13/18 HISTORY: NG tube check. There is a tube which appears to represent the NG tube. It is seen in the antrum region of the stomac h. Proximal end of the tubes is very difficult to visualize on this exam. IMPRESSION: NG tube with tube seen in the stomach. POS: [facility]
[2018-01-13 22:04] LABS: MDiff Complete? YES; Macrocytosis SLIGHT = 6-15 cells (100X) (0-5/hpf)
--- NOTE | 2018-01-14 00:16 | PRG ---
DATE OF SERVICE: 01/13/2018 SUBJECTIVE: The patient felt better this morning, but then became somewhat confused and inadvertentl y pulled out his NG tube. Through the night time, he did have a significant amount of output of 2700 but today he is only had 300 mL out and did not vomit after his NG tube was pulled out 45 minutes ag o. He has denied any shortness of breath, abdominal pain, fever or chills. OBJECTIVE: His vital signs have stabilized. Temperature 99.6, pulse 79, respirations 20, O2 sats 93 % on room air, blood pressure 131/65. LABORATORY DATA: Laboratory did show white count decreased to 15,300, hematocrit 36, hemoglobin 12. Sodium is 133, potassium 4.7, chloride 104, bicarb 17, BUN 24, creatinine 1.13, repeat CT scan showe d decompression of the dilated small bowel loops, nonspecific distention, stable gallstone sludge and left pleural effusion. ASSESSMENT: 1. Resolving small-bowel obstruction, NG suction. 2. Stable atrial fibrillation. 3. Stable coronary artery disease. 4. delirium. PLAN: 1. Continue NG suction through the night. Repeat x-ray tomorrow and give Gastrografin small bowel s eries tomorrow and possibly discontinue NG tube. 2. Continue IV enalapril for blood pressure control and digoxin for rate control. 3. Continue Levaquin 500 IV daily for inflammation.
[2018-01-14] MEDS: 1/2 NS w/KCL 20 mEq 1,000 ML IV SCH ×3 (03:26→17:08)
[2018-01-14 05:35] LABS: Anion Gap 14 mmol/L (10-20); BUN (Urea Nitrogen) 22 mg/dL (8.4-25.7); Calc. Creatinine Clearance 54 mL/min (70-130); Carbon Dioxide 21 mmol/L (23-31); Chloride 103 mmol/L (98-107); Estimated GFR-MDRD 70; Glucose 90 mg/dL (83-110); Sodium 133 mmol/L (136-145)
[2018-01-14 05:46] LABS: #Basophils 0.1 thou/uL (0.0-0.2); #Monocytes 1.8 thou/uL (0.11-0.59); #Neutrophils 9.2 thou/uL (1.40-6.50); %Eosinophils 0.3 % (0.0-10.0); %Lymphocytes 8.2 % (21.0-51.0); %Monocytes 14.5 % (0.0-10.0); Hemoglobin 11.4 g/dL (14.0-18.0); MDiff Complete? YES; Macrocytosis SLIGHT = 6-15 cells (100X) (0-5/hpf); Mean Corpuscular HGB CONC 35.7 g/dL (32.0-36.0); Mean Corpuscular Hemoglobin 36.2 pg (27.0-31.0); Mean Platelet Volume 8.6 fL (7.4-10.4); PLT Morphology Comment Appears Adequate; Platelet Count 164 thou/uL (130-400); RBC Distribution Width 13.4 % (11.5-14.5); Red Blood Cell (RBC) Count 3.13 mill/uL (4.70-6.10); White Blood Cell (WBC) Count 12.1 thou/uL (4.8-10.8)
[2018-01-14] MEDS ORDERED: Digoxin 0.5 MG/2 ML AMP SLOW IVP SCH (09:00)
[2018-01-14] MEDS: Enalaprilat Dihydrate 1.25 MG/ML VIAL SLOW IVP SCH (09:48)
[2018-01-14] MEDS: Enoxaparin Sodium 30 MG/0.3 ML SYRINGE SC SCH (09:48)
[2018-01-14] MEDS: Arformoterol 15 MCG/2 ML NEB NEB SCH ×2 (09:48→20:39)
[2018-01-14] MEDS: Budesonide 0.5 MG/2 ML NEB NEB SCH ×2 (09:48→20:39)
[2018-01-14] MEDS: Famotidine/PF 20 mg/2ml Vial SLOW IVP SCH ×2 (09:49→19:47)
--- NOTE | 2018-01-14 16:46 | RAD ---
This examination was dictated with the small bowel study. Please see that report and dictation for fu rther details. POS: [facility]
--- NOTE | 2018-01-14 17:01 | RAD ---
SMALL BOWEL STUDY: 01/14/18 HISTORY: Bowel obstruction. FINDINGS: Corporate Safety Manager image demonstrates a nonspecific bowel gas pattern. Prominent vascular calcifications are seen within the abdominal aorta, iliac, and femoral arteries. There are degenerative changes seen within t he thoracic as well as lumbar spine. Phleboliths overlie the pelvis. Small bowel images some of which include the lung bases demonstrate enlargement of the cardiac silhou ette and postsurgical change related to CABG. Small bowel study was performed. While contrast is very diluted, images are underpenetrated due to po rtable technique, no definite dilated loops of small bowel are seen. There is contrast seen within th e colon on the one hour and 30 minute image including what appears to be contrast in the region of th e rectum. IMPRESSION: 1. Normal caliber loops of small bowel with approximate transit time of contrast through the sma ll bowel of one hour and 30 minutes. Contrast is seen in the rectum on the one hour and 30 minute eda ge. 2. Cardiomegaly. 3. Prominent degenerative changes in the spine. 4. Prominent vascular calcifications. POS: [facility]
[2018-01-14] MEDS ORDERED: traMADol HCl 50 MG TAB PO PRN (19:27)
--- NOTE | 2018-01-14 19:47 | PRG ---
DATE OF SERVICE: 01/14/2018 SUBJECTIVE: The patient felt better this morning with no nausea, vomiting or abdominal pain. His tu be was clamped after only 200 mL suction through the night and he had Gastrografin small bowel follow through today with a quick transit to the colon. He has been started on clear liquid diet, is fariha ating well, feels well and will be changed to mechanical soft diet tomorrow and possibly discharge ho me. OBJECTIVE: Shows his temperature is 98.4, pulse 75, respirations 18, O2 sats 96% on room air, blood pressure 124/79. LABORATORY: Show white count 12,100, hematocrit 31, hemoglobin 11. Sodium 133, potassium 5.0, chlor cher 103, bicarb 21, BUN 22, creatinine 1.02. ASSESSMENT: 1. Resolving small-bowel obstruction 2. Stable atrial fibrillation. 3. Stable coronary disease. 4. Stable chronic pain from degenerative disk disease and joint disease. PLAN: Change to mechanical soft diet. Discontinue IV. Change back to home medication, Losartan, tr amadol and carvedilol. I will evaluate in a.m. and possibly discharge in the a.m.
[2018-01-15] MEDS ORDERED: Losartan Potassium 50 MG TAB PO SCH (09:00)
[2018-01-15] MEDS ORDERED: Metoprolol Tartrate 25 MG TAB PO SCH (09:00)
[2018-01-15] MEDS ORDERED: Atorvastatin Calcium 20 MG TAB PO SCH (09:00)
[2018-01-15] MEDS: Arformoterol 15 MCG/2 ML NEB NEB SCH (09:25)
[2018-01-15] MEDS: Budesonide 0.5 MG/2 ML NEB NEB SCH (09:25)
[2018-01-15] MEDS: Famotidine/PF 20 mg/2ml Vial SLOW IVP SCH (09:26)
[2018-01-15] MEDS: Enoxaparin Sodium 30 MG/0.3 ML SYRINGE SC SCH (09:34)
[2018-01-15 09:49] VITALS: BP 161/80; TEMP 98
== END 2018-01-15 11:22 | disposition home or self-care (01) ==
LOC: INTOOBSV 11:04 → NAV ACUTE 11:04 → INTOOBSV 01-13 14:53 → OBSVTOIN 01-13 14:53
PROVIDERS: ADMIT Internal Medicine; ATTEND Internal Medicine
DX: K56.609 Unspecified intestinal obstruction, unspecified as to partial versus complete obstruction (principal); I25.10 Atherosclerotic heart disease of native coronary artery without angina pectoris; M51.36 Other intervertebral disc degeneration, lumbar region; M51.34 Other intervertebral disc degeneration, thoracic region; J90 Pleural effusion, not elsewhere classified; I48.0 Paroxysmal atrial fibrillation; I50.9 Heart failure, unspecified; Z79.82 Long term (current) use of aspirin; Z79.899 Other long term (current) drug therapy; Z88.8 Allergy status to other drugs, medicaments and biological substances; Z95.1 Presence of aortocoronary bypass graft; Z95.0 Presence of cardiac pacemaker
CPT/HCPCS: 36415; 74018; 74176; 74177; 74250; 80048; 80053; 82150; 85025; 94640; 96361; 96372; 96374; 96375; 96376; A4216; G0378; G0379; J1160; J1650; J1956; J2405; J7050; J7620; J7626; S0028

== ENCOUNTER 2018-05-26 10:27 | Outpatient (CLI) | payer MEDICARE ==
--- NOTE | 2018-05-26 12:05 | RAD ---
LUMBAR SPINE FLEXION AND EXTENSION LATERAL VIEWS: 05/26/2018 HISTORY: Lumbosacral spondylosis. Low back pain. FINDINGS: Multilevel degenerative changes are seen in the lumbar spine with narrowing of the intervertebral dis k spaces at all levels. There is grade 1 anterolisthesis of L5 on S1, and this was noted on a prior CT lumbar spine on 11/09/2017, where bilateral pars defects were present. These pars defects are dif ficult to delineate on this exam due to overlying iliac bones. Prominent facet hypertrophic changes are seen at multiple levels. No abnormal translational motion is seen between the flexion and extens ion views. The vertebral body heights are grossly within normal limits. Dense vascular calcifications are seen in the abdominal aorta and involving the iliac arteries. IMPRESSION: Multilevel degenerative changes of the lumbar spine with grade 1 anterolisthesis of L5 on S1. POS: KORINA
--- NOTE | 2018-05-26 12:37 | CT ---
CT LUMBAR SPINE NONCONTRAST: 05/26/2018 HISTORY: Lumbosacral spondylosis. Low back pain. COMPARISON: 11/09/2017 FINDINGS: There is a small left pleural effusion, incompletely evaluated, but was also present on the prior exa m. There is atelectasis at the right lung base. There is suggestion of a tiny right pleural effusio n at the right lung base on the prior study, which is not seen on the current exam. Vascular calcifi cations are again seen involving the abdominal aorta and the iliac arteries. Multilevel degenerative changes are seen throughout the lumbar spine, with vacuum phenomenon at all l evels. There is left convex curvature of the lower lumbar spine with left lateral subluxation of L4 on L5, which is stable from the prior exam, and there is slight right lateral subluxation of L3 on L4 , again stable from prior study. Multilevel osteophytes are present. Laminectomy defects are again seen, extending from the L1-L2 level to the lumbosacral junction. T11-T12: There is a disk osteophyte complex, with prominent facet hypertrophic changes. Findings re sult in mild narrowing of the central spinal canal. The right neural foramen is patent, but there is mild to moderate left-sided neural foraminal narrowing, primarily related to bony encroachment. T12-L1: There is loss of intervertebral disk height. Broad-based disk osteophyte complex is present . There are facet hypertrophic changes. Mild narrowing of the central spinal canal is present. The re is mild right and moderate left-sided neural foraminal narrowing due to bony encroachment. L1-L2: There is loss of intervertebral disk height. There is posterior osteophyte formation and, li sonal, disk material, with prominent facet hypertrophic changes. As noted above, there is a laminecto my defect present at this level. There is no significant narrowing of the central spinal canal. The re is mild to moderate right-sided neural foraminal narrowing with moderate left-sided neural foramin al narrowing. L2-L3: There is a broad-based disk osteophyte complex with prominent facet hypertrophic changes. Al though there is a laminectomy defect posteriorly, there is mild to moderate narrowing of the central spinal canal with moderate to severe bilateral neural foraminal narrowing present. The degree of jeremiah ral foraminal narrowing is similar to the prior study. L3-L4: There is loss of intervertebral disk height. There is a broad-based disk osteophyte complex and prominent facet hypertrophic changes. There is moderate narrowing of the central spinal canal. There is moderate to severe bilateral neural foraminal narrowing, similar to prior exam. L4-L5: There is severe loss of intervertebral disk height. There is a broad-based disk osteophyte c omplex with severe facet hypertrophic changes. Laminectomy defect is present posteriorly. There is severe narrowing of the central spinal canal, related to the bony encroachment. There is also narrow ing of the lateral recesses at this level. Moderate to severe bilateral neural foraminal narrowing i s present, again primarily attributable to bony encroachment. L5-S1: Bilateral pars defects are seen with stable slight grade 1 anterolisthesis of L5 on S1. Lami nectomy defect is present posteriorly. There is resultant severe bilateral neural foraminal narrowin g, as well as moderate narrowing of the central spinal canal. IMPRESSION: 1. Post surgical changes and multilevel severe degenerative changes throughout the lumbar spine, not significantly progressed from prior study in 2018. 2. Stable spondylolisthesis at the lumbosacral junction, resulting in severe bilateral neural forami nal narrowing. There are moderate to severe degrees of neural foraminal narrowing at multiple levels of the lumbar spine. 3. Small left pleural effusion. POS: KORINA
== END 2018-05-26 10:28 | disposition home or self-care (01) ==
LOC: NAV CT 10:27
PROVIDERS: ATTEND Specialist
DX: M43.07 Spondylolysis, lumbosacral region (principal); M47.816 Spondylosis without myelopathy or radiculopathy, lumbar region; M43.17 Spondylolisthesis, lumbosacral region
CPT/HCPCS: 72100; 72131

== ENCOUNTER 2018-06-23 10:37 | Emergency (ER) | payer MEDICARE ==
[2018-06-23] MEDS ORDERED: Dexamethasone 4 mg/ml Vial ONE (11:43)
== END 2018-06-23 12:00 | disposition home or self-care (01) ==
LOC: NAV ERS 10:37
DX: H65.01 Acute serous otitis media, right ear (principal); J45.909 Unspecified asthma, uncomplicated; I25.10 Atherosclerotic heart disease of native coronary artery without angina pectoris; I48.91 Unspecified atrial fibrillation; K21.9 Gastro-esophageal reflux disease without esophagitis; E78.2 Mixed hyperlipidemia; I11.0 Hypertensive heart disease with heart failure; I50.9 Heart failure, unspecified; Z79.899 Other long term (current) drug therapy; Z79.82 Long term (current) use of aspirin
CPT/HCPCS: 96372; J1100

== ENCOUNTER 2018-08-07 10:08 | Outpatient (CLI) | payer MEDICARE ==
--- NOTE | 2018-08-07 11:02 | ULT ---
Arterial duplex sonogram bilateral lower extremity HISTORY: Foot ulceration. Vascular disease. FINDINGS: Good color and spectral Doppler flow throughout each lower extremity Right: Triphasic waveform within the common femoral and deep femoral, femoral and popliteal artery. M onophasic flow within the dorsalis pedis, anterior tibial, and posterior tibial artery. Left: Triphasic wave flow within the common femoral and deep femoral, and proximal femoral artery. Bi phasic waveform within the mid to distal femoral artery. Monophasic flow within the popliteal, anterior tibial, and posterior tibial arteries. No abnormally elevated peak systolic velocities. Plaque is seen throughout the arterial structures. IMPRESSION: Atherosclerosis. Good arterial flow to each lower extremity. Dampened pulsatilities dista lly suggest medium to small vessel disease. Conventional or CT arteriogram could be used for better characterization if appropriate.
== END 2018-08-07 10:09 | disposition home or self-care (01) ==
LOC: NAV ULT 10:08
PROVIDERS: ATTEND Nurse Practitioner Adult Health
DX: L97.522 Non-pressure chronic ulcer of other part of left foot with fat layer exposed (principal); I70.0 Atherosclerosis of aorta
CPT/HCPCS: 93923

== ENCOUNTER 2018-11-11 09:34 | Emergency (ER) | payer MEDICARE ==
[2018-11-11 10:17] LABS: #Basophils 0.1 thou/uL (0.0-0.2); #Lymphocytes 0.7 thou/uL (1.20-3.40); #Neutrophils 8.7 thou/uL (1.40-6.50); %Basophils 0.6 % (0.0-1.0); %Eosinophils 0.3 % (0.0-10.0); %Lymphocytes 6.7 % (21.0-51.0); %Monocytes 9.7 % (0.0-10.0); %Neutrophils 82.8 % (42.0-75.0); Hemoglobin 10.3 g/dL (14.0-18.0); Mean Corpuscular HGB CONC 32.1 g/dL (32.0-36.0); Mean Corpuscular Hemoglobin 31.6 pg (27.0-31.0); Mean Corpuscular Volume 98.2 fL (78.0-98.0); Mean Platelet Volume 8.5 fL (7.4-10.4); Platelet Count 140 thou/uL (130-400); RBC Distribution Width 15.8 % (11.5-14.5); Red Blood Cell (RBC) Count 3.25 mill/uL (4.70-6.10); White Blood Cell (WBC) Count 10.5 thou/uL (4.8-10.8)
[2018-11-11 10:29] LABS: ALT (SGPT) 37 U/L (8-55); AST (SGOT) 95 U/L (5-34); Albumin 3.9 g/dL (3.4-4.8); Alkaline Phosphatase 350 U/L (40-150); Anion Gap 18 mmol/L (10-20); BUN (Urea Nitrogen) 21 mg/dL (8.4-25.7); Bilirubin, Total 4.4 mg/dL (0.2-1.2); Calc. Creatinine Clearance 0 mL/min (70-130); Calcium 9.7 mg/dL (7.8-10.44); Carbon Dioxide 22 mmol/L (23-31); Chloride 100 mmol/L (98-107); Estimated GFR-MDRD 40; Globulin 2.4 g/dL (2.4-3.5); Glucose 109 mg/dL (83-110); Protein, Total 6.3 g/dL (5.8-8.1); Sodium 136 mmol/L (136-145)
--- NOTE | 2018-11-11 11:12 | RAD ---
EXAM: Single view of the chest HISTORY: Cough and shortness of breath COMPARISON: 12/27/2017 FINDINGS: Single view of the chest shows an enlarged but stable cardiomediastinal silhouette. The pa tient is status post sternotomy. The pacemaker is unchanged in position. There is a veil like opacity in the inferior left thorax which likely represents a layering pleural effusion. There is no evidence of consolidation or mass. The bones are unremarkable. IMPRESSION: Cardiomegaly and small left pleural effusion
[2018-11-11] MEDS ORDERED: predniSONE 20 MG TAB ONE (11:30)
[2018-11-11] MEDS ORDERED: Azithromycin 250 MG TAB ONE (11:31)
== END 2018-11-11 11:45 | disposition home or self-care (01) ==
LOC: NAV ERS 09:34
DX: J90 Pleural effusion, not elsewhere classified (principal); J45.909 Unspecified asthma, uncomplicated; I25.10 Atherosclerotic heart disease of native coronary artery without angina pectoris; I50.9 Heart failure, unspecified; I48.91 Unspecified atrial fibrillation; E87.1 Hypo-osmolality and hyponatremia; J42 Unspecified chronic bronchitis; Z79.899 Other long term (current) drug therapy; Z79.82 Long term (current) use of aspirin; Z79.891 Long term (current) use of opiate analgesic
CPT/HCPCS: 71045; 80053; 85025; 94760; J7512

== ENCOUNTER 2018-11-13 12:52 | Emergency (ER) | payer MEDICARE ==
[2018-11-13 13:26] LABS: INR-International Normal Ratio 1.3; Prothrombin Time 16.6 SEC (12.0-14.7)
[2018-11-13 13:27] LABS: PTT 36.4 SEC (22.9-36.1)
[2018-11-13 13:33] LABS: #Basophils 0.1 thou/uL (0.0-0.2); #Lymphocytes 0.3 thou/uL (1.20-3.40); #Monocytes 0.4 thou/uL (0.11-0.59); #Neutrophils 15.6 thou/uL (1.40-6.50); %Basophils 0.5 % (0.0-1.0); %Lymphocytes 2.1 % (21.0-51.0); %Monocytes 2.3 % (0.0-10.0); %Neutrophils 95.1 % (42.0-75.0); Hemoglobin 10.4 g/dL (14.0-18.0); Mean Corpuscular HGB CONC 33.9 g/dL (32.0-36.0); Mean Corpuscular Hemoglobin 33.2 pg (27.0-31.0); Mean Platelet Volume 10.3 fL (7.4-10.4); Platelet Count 142 thou/uL (130-400); RBC Distribution Width 16.7 % (11.5-14.5); Red Blood Cell (RBC) Count 3.13 mill/uL (4.70-6.10); White Blood Cell (WBC) Count 16.4 thou/uL (4.8-10.8)
[2018-11-13 13:36] LABS: ALT (SGPT) 58 U/L (8-55); AST (SGOT) 145 U/L (5-34); Albumin 3.7 g/dL (3.4-4.8); Alkaline Phosphatase 247 U/L (40-150); Anion Gap 19 mmol/L (10-20); BUN (Urea Nitrogen) 31 mg/dL (8.4-25.7); Bilirubin, Total 7.9 mg/dL (0.2-1.2); Calc. Creatinine Clearance 0 mL/min (70-130); Calcium 9.1 mg/dL (7.8-10.44); Carbon Dioxide 20 mmol/L (23-31); Chloride 97 mmol/L (98-107); Estimated GFR-MDRD 40; Globulin 2.1 g/dL (2.4-3.5); Glucose 83 mg/dL (83-110); Lipase 294 U/L (8-78); Magnesium 1.8 mg/dL (1.6-2.6); Potassium 4.1 mmol/L (3.5-5.1); Protein, Total 5.8 g/dL (5.8-8.1); Sodium 132 mmol/L (136-145)
[2018-11-13] MEDS ORDERED: Sodium Chloride 0.9% 1,000 ML ONE (13:47)
[2018-11-13 14:02] LABS: CKMB 10.7 ng/mL (0-6.6)
[2018-11-13] MEDS ORDERED: Piperacillin/Tazobactam 3.375 GM VIAL ONE (14:06)
[2018-11-13] MEDS ORDERED: Ondansetron PF 4 MG/2 ML Vial ONE (14:06)
[2018-11-13] MEDS ORDERED: Sodium Chloride 0.9% 100 ML ONE (14:06)
[2018-11-13] MEDS ORDERED: Aspirin Chewable 81 MG TAB ONE (14:06)
[2018-11-13] MEDS ORDERED: Fentanyl 100 MCG/2 ML VIAL ONE (14:28)
--- NOTE | 2018-11-13 14:42 | RAD ---
RADIOGRAPH CHEST 1 VIEW: DATE: 11/13/2018 TIME: 1:06 PM HISTORY: 83-year-old male with dyspnea COMPARISON: 11/11/2018 FINDINGS: Partial severe silhouetting of left hemidiaphragm. Increased attenuation in medial aspect of left low er lobe. Cardiomegaly. Sternotomy wires. Left subclavian single lead pacemaker. No pulmonary edema. New finding of subsegmental atelectasis at left lateral midlung zone. No other interval change. No pn eumothorax. IMPRESSION: 1. Cardiomegaly. 2. Left lower lobe atelectasis versus pneumonia. 3. Left pleural effusion versus left pleural thickening, incompletely imaged. 4. No major interval change.
--- NOTE | 2018-11-13 15:07 | CT ---
ABDOMEN AND PELVIC CT SCAN WITHOUT IV CONTRAST: Date: 11/13/18 HISTORY: Abdominal pain, weakness, shortness of breath. COMPARISON: 01/13/18. FINDINGS: Bilateral pleural effusions, larger on the left side. Evidence for bilateral vascular congestion and probable mild edema. Cardiomegaly. Fairly extensive ascites since the prior study. Several opacities within the gallbladder concerning for gallstones. Gallbladder wall and pericholecystic region is some what difficult to evaluate. It appears somewhat thick, but may well be related to ascites. Liver cont our is somewhat nodular, raising the concern for the possibility of cirrhosis. Pancreas and spleen an d adrenal glands are unremarkable. No renal calculus or acute obstruction. No evidence for large o r small bowel obstruction. Extensive postop laminectomy changes of the lumbar spine with multilevel s tenosis. Fat-containing left inguinal hernia. IMPRESSION: 1. Moderate bilateral pleural effusions, greater on the left side. 2. Developing moderate ascites. 3. Probable gallstones. 4. Other findings as above. POS: RRE
== END 2018-11-13 14:52 | disposition short-term general hospital (02) ==
LOC: NAV ERS 12:52
DX: R17 Unspecified jaundice (principal); I11.0 Hypertensive heart disease with heart failure; I50.9 Heart failure, unspecified; R94.31 Abnormal electrocardiogram [ECG] [EKG]; R79.89 Other specified abnormal findings of blood chemistry; R10.84 Generalized abdominal pain; J45.909 Unspecified asthma, uncomplicated; I25.10 Atherosclerotic heart disease of native coronary artery without angina pectoris; I49.9 Cardiac arrhythmia, unspecified; I48.91 Unspecified atrial fibrillation; E78.2 Mixed hyperlipidemia; J42 Unspecified chronic bronchitis; Z79.899 Other long term (current) drug therapy; Z79.52 Long term (current) use of systemic steroids; Z79.82 Long term (current) use of aspirin
CPT/HCPCS: 71045; 74176; 80053; 82553; 83605; 83690; 83735; 83880; 84484; 85025; 85610; 85730; 87040; 93005; 94760; 96374; 96375; J2405; J2543; J3010; J3490; J7050